=== PATIENT | female | born 1930 | race Caucasian/White ===

== ENCOUNTER 2021-11-26 14:32 | Inpatient (IN) ==
[2021-11-26 15:34] LABS: Hematocrit 28.1 % (35.3-44.9); Hemoglobin 9.2 g/dL (11.5-15.4); Mean Corpuscular HGB Conc 32.7 g/dL (31.6-35.5); Mean Corpuscular Hemoglobin 31.5 pg (28.0-33.3); Mean Corpuscular Volume 96.2 fL (83.0-100.0); Mean Platelet Volume 12.8 fL (9.4-12.4); Nucleated Red Blood Cells 0.4 /100 WBC (0); Platelet Count 149 K/mcL (140-400); Red Blood Count 2.92 M/mcL (3.82-4.97); Red Cell Distribution Width 21.1 % (11.5-14.5)
[2021-11-26 15:43] LABS: White Blood Count 30.9 K/mcL (4.3-11.1)
[2021-11-26 16:01] LABS: Alanine Aminotransferase 311 Units/L (7-52); Albumin 4.7 g/dL (3.5-5.7); Albumin/Globulin Ratio 2.5 (1.1-2.2); Alkaline Phosphatase 78 Units/L (34-104); Aspartate Amino Transferase 65 Units/L (13-39); BUN/Creatinine Ratio 46 (6-26); Bilirubin,Direct 0.5 mg/dL (0.0-0.2); Bilirubin,Indirect 1.3 mg/dL (0.0-1.0); Bilirubin,Total 1.8 mg/dL (0.3-1.0); Blood Urea Nitrogen 31 mg/dL (8-23); Calcium 11.6 mg/dL (8.6-10.3); Carbon Dioxide 26 mEq/L (23-29); Chloride 98 mEq/L (98-107); Globulin 1.9 g/dL (2.4-3.5); Glucose 143 mg/dL (70-105); Lipase 185 Units/L (11-82); Osmolality,Calculated 287 (280-300); Potassium 4.7 mEq/L (3.5-5.1); Sodium 134 mEq/L (136-145); Total Protein 6.6 g/dL (6.4-8.9); Troponin I 0.47 ng/mL (< 0.04); eGFR For African Americans > 60 (> 60); eGFR For Non-African Americans > 60 (> 60)
[2021-11-26 16:08] LABS: Eosinophils # 0.6 K/mcL (0.0-0.6); Lymphocytes # 3.7 K/mcL (0.6-4.6); Monocytes # 3.7 K/mcL (0.0-1.3); Neutrophils # 17.3 K/mcL (1.6-8.9)
[2021-11-26 16:10] LABS: Anisocytosis 2+ (Not Present); Macrocytosis Present (Not Present); Microcytosis Present (Not Present); Ovalocytes 1+ (Not Present); Poikilocytosis 1+ (Not Present); Schistocytes 1+ (Not Present)
[2021-11-26 16:12] LABS: Platelet Estimate Normal (Normal); Tear Drop Cells 1+ (Not Present)
[2021-11-26] MEDS ORDERED: levoFLOXacin 750 MG/150 ML 750 MG/150 ML BAG IVPB ONE (16:27)
[2021-11-26] MEDS ORDERED: Ondansetron 4 MG/2 ML VIAL IVP PRN (16:56)
[2021-11-26] MEDS ORDERED: MOM Conc 10 ML UD.LIQ PO PRN (16:56)
[2021-11-26] MEDS ORDERED: Mag Hydrox/Al Hydrox/Simeth 30 ML UDC PO PRN (16:56)
[2021-11-26] MEDS ORDERED: Naloxone 0.4 MG/ML INJ IVP PRN (16:56)
[2021-11-26] MEDS ORDERED: Ipratropium/Albuterol Neb 3 ML IH PRN (17:11)
[2021-11-26] MEDS ORDERED: Furosemide 20 MG/2 ML VIAL IVP ONE (18:20)
[2021-11-26] MEDS ORDERED: hydrALAZINE 25 MG TABLET PO PRN (18:58)
[2021-11-26] MEDS: Melatonin 3 MG TABLET PO PRN (20:34)
[2021-11-26] MEDS: Nystatin POWDER 30 GM BOTTLE TP SCH (20:34)
[2021-11-26] MEDS: *HR* Heparin 5,000 UNIT/ML VIAL SQ SCH (22:26)
[2021-11-27] MEDS ORDERED: *HR* Enoxaparin 40 MG/0.4 ML SYRINGE SQ SCH (06:00)
[2021-11-27] MEDS: *HR* Heparin 5,000 UNIT/ML VIAL SQ SCH ×3 (06:45→21:47)
[2021-11-27 08:11] LABS: Hematocrit 25.7 % (35.3-44.9); Hemoglobin 8.3 g/dL (11.5-15.4); Mean Corpuscular HGB Conc 32.3 g/dL (31.6-35.5); Mean Corpuscular Hemoglobin 31.7 pg (28.0-33.3); Mean Corpuscular Volume 98.1 fL (83.0-100.0); Nucleated Red Blood Cells 0.2 /100 WBC (0); Platelet Count 123 K/mcL (140-400); Red Blood Count 2.62 M/mcL (3.82-4.97); Red Cell Distribution Width 21.4 % (11.5-14.5)
[2021-11-27 08:18] LABS: Albumin 4.1 g/dL (3.5-5.7); Albumin/Globulin Ratio 2.6 (1.1-2.2); BUN/Creatinine Ratio 35 (6-26); Bilirubin,Direct 0.5 mg/dL (0.0-0.2); Bilirubin,Indirect 1.2 mg/dL (0.0-1.0); Bilirubin,Total 1.7 mg/dL (0.3-1.0); Blood Urea Nitrogen 28 mg/dL (8-23); Calcium 10.5 mg/dL (8.6-10.3); Carbon Dioxide 26 mEq/L (23-29); Chloride 98 mEq/L (98-107); Globulin 1.6 g/dL (2.4-3.5); Glucose 93 mg/dL (70-105); Osmolality,Calculated 285 (280-300); Potassium 4.2 mEq/L (3.5-5.1); Sodium 135 mEq/L (136-145); Total Protein 5.7 g/dL (6.4-8.9); eGFR For African Americans > 60 (> 60); eGFR For Non-African Americans > 60 (> 60)
[2021-11-27] MEDS: DilTIAZem CD (24hr) 180 MG CAP.ER.24H PO SCH (08:59)
[2021-11-27] MEDS: Aspirin Enteric Coated 81 MG Tablet PO SCH (08:59)
[2021-11-27] MEDS ORDERED: Furosemide 20 MG TABLET PO SCH (09:00)
[2021-11-27] MEDS: Cholecalciferol (D-3) 1,000 UNIT (25MCG) TABLET PO SCH (09:00)
[2021-11-27] MEDS: MOM Conc 10 ML UD.LIQ PO SCH (09:00)
[2021-11-27] MEDS: predniSONE 5 MG TABLET PO SCH (09:00)
[2021-11-27] MEDS: Furosemide 20 MG/2 ML VIAL IVP SCH ×2 (09:01→17:06)
[2021-11-27] MEDS: Nystatin POWDER 30 GM BOTTLE TP SCH ×2 (09:03→21:48)
[2021-11-27 09:17] LABS: Lymphocytes # 2.4 K/mcL (0.6-4.6); Monocytes # 3.8 K/mcL (0.0-1.3); Neutrophils # 14.4 K/mcL (1.6-8.9)
[2021-11-27 09:18] LABS: Anisocytosis 1+ (Not Present); Ovalocytes 1+ (Not Present); Platelet Estimate Slight Decrease (Normal)
[2021-11-27 09:23] LABS: Adenovirus Not Detected (Not Detect); Bordetella Pertussis Not Detected (Not Detect); Chlamydophila pneumoniae Not Detected (Not Detect); Coronavirus 229E Not Detected (Not Detect); Coronavirus HKU1 Not Detected (Not Detect); Coronavirus NL63 Not Detected (Not Detect); Coronavirus OC43 Not Detected (Not Detect); Human Metapneumovirus Not Detected (Not Detect); Human Rhinovirus/Enterovirus Not Detected (Not Detect); Influenza A Subtype 2009 H1 Not Detected (Not Detect); Influenza B Not Detected (Not Detect); Mycoplasma pneumoniae Not Detected (Not Detect); Parainfluenza Virus 1 Not Detected (Not Detect); Parainfluenza Virus 2 Not Detected (Not Detect); Parainfluenza Virus 3 Not Detected (Not Detect); Parainfluenza Virus 4 Not Detected (Not Detect); Respiratory Syncytial Virus Not Detected (Not Detect); SARS-CoV-2 Not Detected (Not Detect)
[2021-11-27] MEDS: Vancomycin 1,250 MG/262.5 ML IV.SOLN IVPB SCH (17:06)
[2021-11-27] MEDS: Melatonin 3 MG TABLET PO PRN (21:47)
[2021-11-28] MEDS: *HR* Heparin 5,000 UNIT/ML VIAL SQ SCH ×3 (06:50→20:43)
[2021-11-28] MEDS: Aspirin Enteric Coated 81 MG Tablet PO SCH (08:28)
[2021-11-28] MEDS: predniSONE 5 MG TABLET PO SCH (08:28)
[2021-11-28] MEDS: MOM Conc 10 ML UD.LIQ PO SCH (08:28)
[2021-11-28] MEDS: Furosemide 20 MG/2 ML VIAL IVP SCH ×2 (08:28→16:37)
[2021-11-28] MEDS: DilTIAZem CD (24hr) 180 MG CAP.ER.24H PO SCH (08:28)
[2021-11-28] MEDS: Cholecalciferol (D-3) 1,000 UNIT (25MCG) TABLET PO SCH (08:28)
[2021-11-28] MEDS: Nystatin POWDER 30 GM BOTTLE TP SCH ×2 (08:29→20:43)
[2021-11-28 09:21] LABS: Hematocrit 28.7 % (35.3-44.9); Hemoglobin 9.2 g/dL (11.5-15.4); Mean Corpuscular HGB Conc 32.1 g/dL (31.6-35.5); Mean Corpuscular Hemoglobin 31.6 pg (28.0-33.3); Mean Corpuscular Volume 98.6 fL (83.0-100.0); Nucleated Red Blood Cells 0.3 /100 WBC (0); Platelet Count 116 K/mcL (140-400); Red Blood Count 2.91 M/mcL (3.82-4.97); Red Cell Distribution Width 21.5 % (11.5-14.5)
[2021-11-28 09:46] LABS: BUN/Creatinine Ratio 28 (6-26); Blood Urea Nitrogen 24 mg/dL (8-23); Calcium 10.7 mg/dL (8.6-10.3); Carbon Dioxide 31 mEq/L (23-29); Chloride 96 mEq/L (98-107); Glucose 127 mg/dL (70-105); Osmolality,Calculated 288 (280-300); Potassium 3.9 mEq/L (3.5-5.1); Sodium 136 mEq/L (136-145); eGFR For African Americans > 60 (> 60); eGFR For Non-African Americans > 60 (> 60)
[2021-11-28 16:23] LABS: Lymphocytes # 1.5 K/mcL (0.6-4.6)
[2021-11-28 16:24] LABS: Platelet Estimate Slight Decrease (Normal)
[2021-11-28 16:25] LABS: Anisocytosis 1+ (Not Present); Macrocytosis Present (Not Present); Ovalocytes 1+ (Not Present); Tear Drop Cells 1+ (Not Present)
[2021-11-28] MEDS ORDERED: levoFLOXacin 750 MG/150 ML 750 MG/150 ML BAG IVPB SCH (17:00)
[2021-11-28] MEDS: Vancomycin 1,250 MG/262.5 ML IV.SOLN IVPB SCH (18:09)
[2021-11-28] MEDS: Melatonin 3 MG TABLET PO PRN (20:42)
[2021-11-29] MEDS: *HR* Heparin 5,000 UNIT/ML VIAL SQ SCH (05:25)
[2021-11-29 07:17] LABS: Basophils # 0.2 K/mcL (0.0-0.2); Basophils % 1.3 %; Eosinophils # 0.1 K/mcL (0.0-0.6); Eosinophils % 0.9 %; Hematocrit 26.3 % (35.3-44.9); Hemoglobin 8.3 g/dL (11.5-15.4); Immature Granulocytes % 9.1 % (0-4); Lymphocytes # 1.6 K/mcL (0.6-4.6); Lymphocytes % 11.9 %; Mean Corpuscular HGB Conc 31.6 g/dL (31.6-35.5); Mean Corpuscular Volume 101.5 fL (83.0-100.0); Monocytes # 3.6 K/mcL (0.0-1.3); Monocytes % 27.4 %; Neutrophils # 6.6 K/mcL (1.6-8.9); Nucleated Red Blood Cells 0.2 /100 WBC (0); Red Blood Count 2.59 M/mcL (3.82-4.97); Red Cell Distribution Width 21.1 % (11.5-14.5); Segmented Neutrophils % 49.4 %; White Blood Count 13.3 K/mcL (4.3-11.1)
[2021-11-29 07:47] LABS: Platelet Count 98 K/mcL (140-400)
[2021-11-29 07:56] LABS: BUN/Creatinine Ratio 26 (6-26); Blood Urea Nitrogen 20 mg/dL (8-23); Calcium 10.1 mg/dL (8.6-10.3); Carbon Dioxide 31 mEq/L (23-29); Glucose 96 mg/dL (70-105); Osmolality,Calculated 280 (280-300); Potassium 3.7 mEq/L (3.5-5.1); Sodium 134 mEq/L (136-145); eGFR For African Americans > 60 (> 60); eGFR For Non-African Americans > 60 (> 60)
[2021-11-29 07:58] LABS: Chloride 94 mEq/L (98-107)
[2021-11-29] MEDS: MOM Conc 10 ML UD.LIQ PO SCH (08:29)
[2021-11-29] MEDS: Cholecalciferol (D-3) 1,000 UNIT (25MCG) TABLET PO SCH (08:30)
[2021-11-29] MEDS: Aspirin Enteric Coated 81 MG Tablet PO SCH (08:30)
[2021-11-29] MEDS: DilTIAZem CD (24hr) 180 MG CAP.ER.24H PO SCH (08:30)
[2021-11-29] MEDS: Nystatin POWDER 30 GM BOTTLE TP SCH (08:30)
[2021-11-29] MEDS: Furosemide 20 MG/2 ML VIAL IVP SCH (08:30)
[2021-11-29] MEDS: predniSONE 5 MG TABLET PO SCH (08:30)
[2021-11-29 10:37] VITALS: BP 138/66; PULSE 73; RESP 18; TEMP 98; O2SAT 93
== END 2021-11-29 14:14 | disposition home health service (06) | DRG 280 ==
LOC: INPPIK 14:32 → EMEROOPIK 14:32 → INPPIK 18:08
PROVIDERS: ADMIT Internal Medicine; ATTEND Internal Medicine